=== PATIENT | male | born 1960 | race Caucasian/White ===

== ENCOUNTER 2017-05-04 11:42 | Observation (INO) | payer OTHER ==
[~2017-05-04] VITALS: Ht 172.7 cm; Wt 85.4 kg
[~2017-05-04 11:42] MED LIST: No Home Medications
[2017-05-04] MEDS ORDERED: MECLIZINE HCL 25 MG TAB PO STA (12:17)
[2017-05-04] MEDS ORDERED: SODIUM CHLORIDE 0.9% 1000ML 500 ML IV STA (12:17)
[2017-05-04] MEDS ORDERED: NITROGLYCERIN OINT 2% 1GM PACKET EXT STA (12:17)
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
[2017-05-04] MEDS ORDERED: OPTIRAY 320 IV PRN (12:30)
[2017-05-04 12:53] LABS: HEMATOCRIT 41.3 % (42-52); MEAN CELL VOLUME 91.6 fL (80-100); MEAN CORPUSCULAR HEMOGLOBIN 33.3 pg (25-34); MEAN CORPUSCULAR HGB CONC 36.3 g/dl (32-36); MEAN PLATELET VOLUME 8.7 fL (7.4-10.4); PLATELET COUNT 294 K/uL (130-400); RED BLOOD COUNT 4.51 M/uL (4.7-6.1); WHITE BLOOD COUNT 6.56 K/uL (4.8-10.8)
[2017-05-04 13:00] LABS: INR 1.1 (0.9-1.1); PROTHROMBIN TIME (PATIENT) 11.3 SECONDS (9.0-12.0)
[2017-05-04 13:01] LABS: ALT/SGPT 19 U/L (12-78); BLOOD UREA NITROGEN 18 mg/dl (7-18); BUN/CREATININE RATIO 17.5 (10-20); CALCIUM 9.6 mg/dl (8.5-10.1); CARBON DIOXIDE 20 mmol/L (21-32); CHLORIDE 106 mmol/L (98-107); GLUCOSE 167 mg/dl (70-99); POTASSIUM 3.4 mmol/L (3.5-5.1); SODIUM 137 mmol/L (136-145)
[2017-05-04 13:06] LABS: ALKALINE PHOSPHATASE 80 U/L (45-117); AST/SGOT 21 U/L (15-37)
--- NOTE | 2017-05-04 13:09 | DIAGNOSTIC IMAGING REPORT ---
CHEST ONE VIEW PORTABLE CLINICAL HISTORY: CHEST PAIN COMPARISON STUDY: No previous studies for comparison. FINDINGS: The bones soft tissues and hemidiaphragms are normal. The cardiomediastinal silhouette is normal. The lungs are clear. The pulmonary vasculature is normal. IMPRESSION: Negative chest. The above report was generated using voice recognition software. It may contain grammatical, syntax or spelling errors. Electronically signed by: Iglesia Walker M.D. 05/04/2017 1:07 PM Dictated Date/Time: 05/04/2017 1:06 PM
--- NOTE | 2017-05-04 14:41 | DIAGNOSTIC IMAGING REPORT ---
CHEST COMBO ANGIO DISSECTION CLINICAL HISTORY: 56 years-old Male presenting with chest pain, history of bicuspid valve. TECHNIQUE: Multidetector CT angiography of the chest was performed after the administration of intravenous contrast. 3-D volumetric and/or maximum intensity projection (MIP) images were subsequently reconstructed for review. IV contrast: 120 mL of Optiray 320. A dose lowering technique was used consistent with the principles of ALARA (as low as reasonably achievable). Stenosis measurements were based on NASCET-like criteria. COMPARISON: None. CT DOSE (mGy.cm): The estimated cumulative dose is 1572.55 mGycm. FINDINGS: Rail Track Layer topogram: Unremarkable. Vasculature: Evaluation of the valve annulus is limited given nongated technique. Allowing for this, no evidence of dissection or acute aortic injury. Normal three-vessel arch configuration. Minimal atherosclerosis of the arch. Remaining chest: On soft tissue windows, thyroid and thoracic inlet. No lymphadenopathy. Top normal heart size. No pericardial or pleural effusion. Upper abdomen unremarkable. On lung windows, nodular opacities noted in the right middle and lower lobes. Nodular opacities also noted in the superior segment of the left lower lobe. Dependent opacities likely atelectasis. Airways patent. On bone windows, exaggerated thoracic kyphosis. IMPRESSION: 1. Allowing for nongated technique, no evidence of dissection or acute aortic injury. 2. Nodular opacities in the right middle and lower lobes and superior segment of the left lower lobe concerning for an infectious etiology. Electronically signed by: Kun Julien M.D. 05/04/2017 2:39 PM Dictated Date/Time: 05/04/2017 2:00 PM
[2017-05-04] MEDS ORDERED: LORAZEPAM 2 MG/ML 1 ML VIAL IV STA (14:43)
[2017-05-04] MEDS ORDERED: ONDANSETRON INJ 2 MG/ML 2 ML VIAL IV STA (14:49)
--- NOTE | 2017-05-04 15:32 | DIAGNOSTIC IMAGING REPORT ---
CT OF THE HEAD WITHOUT CONTRAST CLINICAL HISTORY: Vertigo. COMPARISON STUDY: No previous studies for comparison. CT DOSE: 614.27 mGy.cm TECHNIQUE: Helical axial images of the head were obtained without IV contrast. Automated exposure control was utilized for the study. A dose lowering technique was utilized adhering to the principles of ALARA. FINDINGS: No acute intracranial hemorrhage, midline shift or mass effect is present. Vascular contrast is noted from recent contrast-enhanced chest CT. This slightly decreases the sensitivity for detection of acute intracranial hemorrhage but none is identified. Ventricular system is normal. Basilar cisterns are patent. There are no extra-axial collections. Spicer-white differentiation is maintained. There are no findings to suggest acute dural sinus thrombosis or acute territorial infarct. There are no significant calvarial abnormalities. Visualized portions of the sinuses and mastoid air cells are clear. IMPRESSION: No acute intracranial findings. Electronically signed by: Jt Guerra M.D. 05/04/2017 3:31 PM Dictated Date/Time: 05/04/2017 3:28 PM
[2017-05-04] MEDS ORDERED: ACETAMINOPHEN 325 MG TAB PO PRN (16:30)
[2017-05-04] MEDS ORDERED: ONDANSETRON INJ 2 MG/ML 2 ML VIAL IV PRN (16:30)
[2017-05-04] MEDS ORDERED: CLONAZEPAM 0.5 MG TAB PO PRN (16:30)
[2017-05-04] MEDS ORDERED: NITROGLYCERIN 0.4 MG SL PER TAB CHARGE SL PRN (16:30)
[2017-05-04] MEDS ORDERED: POLYETHYLENE (MIRALAX) 17 GM PACK PO PRN (16:30)
[2017-05-04] MEDS ORDERED: MoRPHine SULFATE 2 MG/ML CARP IV PRN (16:30)
[2017-05-04] MEDS ORDERED: MECLIZINE HCL 25 MG TAB PO PRN (16:30)
[2017-05-04] MEDS ORDERED: PHARMACIST DISCHARGE MED REC CONSULT PRN (16:30)
[2017-05-04 16:40] VITALS: O2SAT 98; Ht 172.7 cm; Wt 85.4 kg
[2017-05-04] MEDS ORDERED: IV FLUIDS COMPLETED PRN (16:45)
--- NOTE | 2017-05-04 16:49 | History and Physical ---
History & Physical Date & Time of Service: May 04, 2017 at 16:29 Chief Complaint: Chest Pain Primary Care Physician: Stanislaw Soria D.O. 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 He states that he got acute chest pain acroos his chest that was a 1/10 while driving and felt like a pulled muscle. He denied radiation of pain. This was swiftly followed by drenching sweats, shortness of breath, nausea, vertigo and blurred vision. A stranger called an ambulance and EMS gave him Zofran, ASA and Nitro with resolution of chest pain and improvement in his symptoms on arrival to the ER. Initial VS in the ER were normal, he was not hypoxic and was afebrile. He then became more dizzy to the point where he couldn't move his head or body much at all for fear of severe nausea and extreme dizziness. He has a h/o bicuspid aortic valve and had a CT scan of his chest revealing no evidence of dissection. At this time, his chest pain and shortness of breath have resolved. He admits to a headache from the [place]. About three weeks ago he and his travelled to [place] and went hiking on trails with a tour group in [facility]. He denies any bugbites, working with hides or hunting activities or anything remote. He does admit to having a URI, however, for which he took Nyquil and Dayquil for about 2 weeks. He continues to take cough drops this morning. The cold symptoms have mostly resolved per his report. He denies any sore throat, cough, fevers, chills, diarrhea, blood per rectum, rashes, joint or muscle aches out of the ordinary. 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 He also reports that he frequently cleans out his own ears with cerumenolytics at home, and uses a suction bulb to squirt warm water in his ear to rinse out the wax debris. He last did this two nights ago. Regarding chest pains in the past, he has felt twinges of pain in response to stressful situations which would be sharp, substernal and last no more than a minute on a weekly basis. He learned some coping mechanisms and breathing techniques, however, and since then these have resolved. He is a very healthy , active nonsmoker. His parents both from heart disease in their early 60s. Past Medical/Surgical History Medical Problems: (1) Benign paroxysmal positional vertigo of left ear Status: Chronic (2) Benign paroxysmal positional vertigo of right ear Status: Chronic (3) Bicuspid aortic valve Status: Chronic (4) Prostate cancer Permanent Comment: s/p prostatectomy and XRT Status: Chronic Family History Diabetes mellitus FH: heart disease FATHER (60s ) MOTHER (60s) Hypertension Kidney disease Social History Smoking Status: Never Smoker Smokeless Tobacco Use: No Alcohol Use: none Drug Use: none Marital Status: Housing status: lives with significant other Occupational Status: employed Immunizations History of Influenza Vaccine: Yes Influenza Vaccine Date: Jun 10, 2016 History of Tetanus Vaccine?: Yes Tetanus Immunization Date: Oct 15, 2010 History of Pneumococcal: No History of Hepatitis B Vaccine: No Multi-Drug Resistant Organisms History of MDRO: No Allergies Coded Allergies: No Known Allergies (Verified , 05/04/17) Review of Systems At least ten systems were reviewed and negative except as indicated in HPI. Physical Exam Vital Signs Date Time Temp Pulse Resp B/P (MAP) Pulse Ox O2 Delivery O2 Flow Rate FiO2 05/04/17 15:41 70 05/04/17 14:56 66 17 121/76 99 Room Air 05/04/17 14:05 60 15 111/67 100 Room Air 05/04/17 13:16 54 106/68 98 Room Air 05/04/17 12:13 61 15 122/69 99 Room Air 05/04/17 11:53 99 Room Air 05/04/17 11:50 70 05/04/17 11:45 36.6 70 16 117/75 98 Room Air 05/04/17 11:45 98 Room Air General Appearance: WD/WN, no apparent distress, + pertinent finding (sitting guarded about turning head for fear of being dizzy) Head: normocephalic, atraumatic Eyes: normal inspection, PERRL, EOMI, sclerae normal ENT: normal ENT inspection, hearing grossly normal, TMs normal, pharynx normal (limited view with Mallumpati III and extreme gag reflex), + pertinent finding ( TM could not be visualized on R ear because of cerumen blockage, normal on L) Neck: supple, no adenopathy, no JVD, trachea midline Respiratory/Chest: lungs clear, normal breath sounds, no respiratory distress, no accessory muscle use Cardiovascular: regular rate, rhythm, no edema, no gallop, no JVD, no murmur, normal peripheral pulses Abdomen/GI: normal bowel sounds, non tender, soft, no organomegaly Back: normal inspection Extremities/Musculoskelatal: normal inspection, no calf tenderness, no pedal edema, normal range of motion Neurologic/Psych: procurement assistant II-XII nml as tested, no motor/sensory deficits, alert, normal mood/affect, normal reflexes, oriented x 3, + pertinent finding (left- beating horizontal nystagmus) Skin: normal color, warm/dry, no rash Diagnostics Laboratory Results 05/04/17 11:49 05/04/17 11:49 Test 05/04/17 11:49 05/04/17 15:15 05/04/17 16:17 Red Blood Count 4.51 M/uL (4.7-6.1) Mean Corpuscular Volume 91.6 fL (80-100) Mean Corpuscular Hemoglobin 33.3 pg (25-34) Mean Corpuscular Hemoglobin Concent 36.3 g/dl (32-36) RDW Standard Deviation 43.8 fL (36.4-46.3) RDW Coefficient of Variation 13.1 % (11.5-14.5) Mean Platelet Volume 8.7 fL (7.4-10.4) Prothrombin Time 11.3 SECONDS (9.0-12.0) Prothromb Time International Ratio 1.1 (0.9-1.1) Activated Partial Thromboplast Time 26.8 SECONDS (21.0-31.0) Partial Thromboplastin Ratio 1.0 Anion Gap 11.0 mmol/L (3-11) Est Creatinine Clear Calc Drug Dose 88.2 ml/min Estimated GFR () 95.7 Estimated GFR (Non- 82.6 BUN/Creatinine Ratio 17.5 (10-20) Calcium Level 9.6 mg/dl (8.5-10.1) Total Bilirubin 1.6 mg/dl (0.2-1) Aspartate Amino Transf (AST/SGOT) 21 U/L (15-37) Alanine Aminotransferase (ALT/SGPT) 19 U/L (12-78) Alkaline Phosphatase 80 U/L (45-117) Troponin I < 0.015 ng/ml (0-0.045) Total Protein 7.6 gm/dl (6.4-8.2) Albumin 3.8 gm/dl (3.4-5.0) Globulin 3.8 gm/dl (2.5-4.0) Albumin/Globulin Ratio 1.0 (0.9-2) Bedside Glucose 115 mg/dl (70-99) Results Past 24 Hours Test 05/04/17 11:49 05/04/17 15:15 05/04/17 16:17 Range/Units White Blood Count 6.56 4.8-10.8 K/uL Red Blood Count 4.51 4.7-6.1 M/uL Hemoglobin 15.0 14.0-18.0 g/dL Hematocrit 41.3 42-52 % Mean Corpuscular Volume 91.6 80-100 fL Mean Corpuscular Hemoglobin 33.3 25-34 pg Mean Corpuscular Hemoglobin Concent 36.3 32-36 g/dl RDW Standard Deviation 43.8 36.4-46.3 fL RDW Coefficient of Variation 13.1 11.5-14.5 % Platelet Count 294 130-400 K/uL Mean Platelet Volume 8.7 7.4-10.4 fL Prothrombin Time 11.3 9.0-12.0 SECONDS Prothromb Time International Ratio 1.1 0.9-1.1 Activated Partial Thromboplast Time 26.8 21.0-31.0 SECONDS Partial Thromboplastin Ratio 1.0 Sodium Level 137 136-145 mmol/L Potassium Level 3.4 3.5-5.1 mmol/L Chloride Level 106 98-107 mmol/L Carbon Dioxide Level 20 21-32 mmol/L Anion Gap 11.0 3-11 mmol/L Blood Urea Nitrogen 18 7-18 mg/dl Creatinine 1.00 0.60-1.40 mg/dl Est Creatinine Clear Calc Drug Dose 88.2 ml/min Estimated GFR () 95.7 Estimated GFR (Non- 82.6 BUN/Creatinine Ratio 17.5 10-20 Random Glucose 167 70-99 mg/dl Calcium Level 9.6 8.5-10.1 mg/dl Total Bilirubin 1.6 0.2-1 mg/dl Aspartate Amino Transf (AST/SGOT) 21 15-37 U/L Alanine Aminotransferase (ALT/SGPT) 19 12-78 U/L Alkaline Phosphatase 80 45-117 U/L Troponin I < 0.015 0-0.045 ng/ml Total Protein 7.6 6.4-8.2 gm/dl Albumin 3.8 3.4-5.0 gm/dl Globulin 3.8 2.5-4.0 gm/dl Albumin/Globulin Ratio 1.0 0.9-2 Bedside Glucose 115 70-99 mg/dl Diagnostic Radiology CT OF THE HEAD WITHOUT CONTRAST CLINICAL HISTORY: Vertigo. COMPARISON STUDY: No previous studies for comparison. CT DOSE: 614.27 mGy.cm TECHNIQUE: Helical axial images of the head were obtained without IV contrast. Automated exposure control was utilized for the study. A dose lowering technique was utilized adhering to the principles of ALARA. FINDINGS: No acute intracranial hemorrhage, midline shift or mass effect is present. Vascular contrast is noted from recent contrast-enhanced chest CT. This slightly decreases the sensitivity for detection of acute intracranial hemorrhage but none is identified. Ventricular system is normal. Basilar cisterns are patent. There are no extra-axial collections. Spicer-white differentiation is maintained. There are no findings to suggest acute dural sinus thrombosis or acute territorial infarct. There are no significant calvarial abnormalities. Visualized portions of the sinuses and mastoid air cells are clear. IMPRESSION: No acute intracranial findings. CHEST COMBO ANGIO DISSECTION CLINICAL HISTORY: 56 years-old Male presenting with chest pain, history of bicuspid valve. TECHNIQUE: Multidetector CT angiography of the chest was performed after the administration of intravenous contrast. 3-D volumetric and/or maximum intensity projection (MIP) images were subsequently reconstructed for review. IV contrast: 120 mL of Optiray 320. A dose lowering technique was used consistent with the principles of ALARA (as low as reasonably achievable). Stenosis measurements were based on NASCET-like criteria. COMPARISON: None. CT DOSE (mGy.cm): The estimated cumulative dose is 1572.55 mGycm. FINDINGS: High Density Finishing Operator topogram: Unremarkable. Vasculature: Evaluation of the valve annulus is limited given nongated technique. Allowing for this, no evidence of dissection or acute aortic injury. Normal three-vessel arch configuration. Minimal atherosclerosis of the arch. Remaining chest: On soft tissue windows, thyroid and thoracic inlet. No lymphadenopathy. Top normal heart size. No pericardial or pleural effusion. Upper abdomen unremarkable. On lung windows, nodular opacities noted in the right middle and lower lobes. Nodular opacities also noted in the superior segment of the left lower lobe. Dependent opacities likely atelectasis. Airways patent. On bone windows, exaggerated thoracic kyphosis. IMPRESSION: 1. Allowing for nongated technique, no evidence of dissection or acute aortic injury. 2. Nodular opacities in the right middle and lower lobes and superior segment of the left lower lobe concerning for an infectious etiology. CHEST ONE VIEW PORTABLE CLINICAL HISTORY: CHEST PAIN COMPARISON STUDY: No previous studies for comparison. FINDINGS: The bones soft tissues and hemidiaphragms are normal. The cardiomediastinal silhouette is normal. The lungs are clear. The pulmonary vasculature is normal. IMPRESSION: Negative chest. Normal EKG Impression Assessment and Plan 56 yo M who presents with sudden onset chest pain and vertigo after a recent URI 1. Vertigo-no neurologic deficits, however, balance and gait cannot be examined with severe nausea and dizziness. Recent viral URI makes vestibular neuritis top on the list of possible causes of vertigo. There is presence of R cerumen in the external canal, and he has techniques of washing out his ears with warm water which may be somewhat contributing. He has a horizontal left- beating nystagmus present and for these reasons, I think his vertigo is peripheral. However, will obtain an MRI/MRA to rule out stroke in the meantime. Will hold off on initiating any high dose prednisone until acute OK is ruled out with recent chest pain and concerning features of ACS in setting of significant family history. ASA was given, Lipitor 80mg started. Neuro consulted. If no OK would consider initiating prednisone at 60mg x 5 days, then work down, 40, 30, 20, 10 and 5mg on successive days for total 10 day taper for treatment of symptoms. Also, antihistamine, benzos and antiemetics are ordered PRN and will keep him on IVF x 2 more bags to ensure he is hydrated well. 2. Chest pain-severe, relieved with nitro. May have been related to stress from vertigo episode, however, patient has a significant family history and some history of repetitive chest pain episodes in the past. May warrant a stress test for risk stratification. OF note, he recently hiked [employer] in [place] without any issues. EKG unremarkable, CXR and CT appear fine. Initial set of cardiac enzymes are normal. 3. h/o prostate cancer-PSA undetectable in Sep 2016 4. Hypokalemia-mild but would prefer slightly higher while considering ACS. 40mg PO ordered. DVT proph-Lovenox. FULL CODE Dispo-to telemetry DO [facility] Level of Care Telemetry Resuscitation Status FULL RESUSCITATION VTE Prophylaxis VTE Risk Assessment Done? Y/N: Yes Risk Level: Moderate Given or contraindicated: Enoxaparin (Lovenox)SQ
--- NOTE | 2017-05-04 17:24 | DIAGNOSTIC IMAGING REPORT ---
ORBIT RADIOGRAPHS 3 VIEWS HISTORY: pre-MRI screening. COMPARISON: None. FINDINGS: There are no radiopaque foreign bodies identified within the orbits. IMPRESSION: No radiopaque foreign bodies identified within the orbits. Electronically signed by: Jt Guerra M.D. 05/04/2017 5:23 PM Dictated Date/Time: 05/04/2017 5:23 PM
[2017-05-04] MEDS: SODIUM CHLORIDE 0.9% 1000ML 1,000 ML IV SCH (18:18)
[2017-05-04] MEDS ORDERED: POTASSIUM CHLORIDE 20 MEQ TABCR PO SCH (18:30)
[2017-05-04 18:43] LABS: CKMB/CK RATIO 2.6 (0-3.0)
[2017-05-04] MEDS ORDERED: INFLUENZA VIRUS QUAD VACCINE 0.5 ML SYR IM. ONE (19:00)
[2017-05-04] MEDS ORDERED: INFLUENZA ADMINISTRATION CHARGE ONE (19:00)
--- NOTE | 2017-05-04 22:27 | DIAGNOSTIC IMAGING REPORT ---
MR ANGIOGRAPHY OF THE [place] NO CONTRAST CLINICAL HISTORY: Sudden onset dizziness and vertigo. Possible stroke COMPARISON STUDY: None. A 3-D [id number] MR angiographic sequence of the [place] was performed. Both the source and projection images were reviewed. There is no evidence of major intracranial branch occlusion. There is no evidence of intracranial stenosis. There are no lesions suspicious for aneurysm. IMPRESSION: Unremarkable MR angiography of the [place]. Electronically signed by: Chuck Morton M.D. 05/04/2017 10:26 PM Dictated Date/Time: 05/04/2017 10:24 PM
--- NOTE | 2017-05-04 22:28 | DIAGNOSTIC IMAGING REPORT ---
NECK MRA HISTORY: Sudden onset dizziness and vertigo. Possible stroke TECHNIQUE: [id number] and gadolinium-enhanced MRA of the neck was performed both before and after the intravenous administration of contrast. All measurements were calculated based on NASCET criteria. The patient was administered 9 cc of intravenous Gadavist. COMPARISON STUDY: None. FINDINGS: The aortic arch and proximal great vessels are widely patent. There is no significant stenosis, occlusion, or dissection identified within the bilateral common carotid, internal carotid, or vertebral arteries. IMPRESSION: No significant stenosis, occlusion, or dissection identified within the carotid or vertebral arteries. Electronically signed by: Chuck Morton M.D. 05/04/2017 10:27 PM Dictated Date/Time: 05/04/2017 10:26 PM
--- NOTE | 2017-05-04 22:54 | DIAGNOSTIC IMAGING REPORT ---
MRI OF THE BRAIN WITHOUT AND WITH IV CONTRAST CLINICAL HISTORY: Sudden onset dizziness and vertigo. Possible stroke COMPARISON STUDY: Noncontrast head CT dated 05/04/2017 TECHNIQUE: MRI of the brain was performed from the vertex to the skull base utilizing various T1 and T2 weighted sequences. Following the IV administration of 9 mL of Gadavist contrast, additional enhanced images were obtained. FINDINGS: Sagittal T1, axial diffusion, proton density and T2 weighted axial, coronal FLAIR, and pre and post axial T1-weighted images were acquired. These were supplemented with post gadolinium coronal T1 weighted images. No intra or extra-axial mass lesions are visualized. Axial diffusion-weighted images reveal no evidence of acute or subacute infarction. There is no evidence of ventricular dilatation. Proton density T2-weighted and FLAIR images reveal no significant a single subtle focus of increased FLAIR and T2 signal within the right posterior medial brodie. There is no pathologic enhancement this level. There are no abnormal flow voids. There is no evidence of pathologic enhancement. IMPRESSION: 1. No evidence of acute or subacute infarction 2. No evidence of intracranial mass 3. Single subtle focus of increased FLAIR and T2 signal within the right posterior medial brodie, a finding of doubtful acute clinical significance Electronically signed by: Chuck Morton M.D. 05/04/2017 10:52 PM Dictated Date/Time: 05/04/2017 10:47 PM
[2017-05-04] MEDS: ATORVASTATIN 40 MG TAB PO SCH (22:55)
[2017-05-04] MEDS ORDERED: GADAVIST IV PRN (23:15)
[2017-05-04 23:49] VITALS: BP 124/73; PULSE 64; TEMP 36.4; O2SAT 100
[2017-05-05] VITALS: O2SAT 98
[2017-05-05] MEDS: SODIUM CHLORIDE 0.9% 1000ML 1,000 ML IV SCH (00:24)
[2017-05-05 00:37] LABS: URINE APPEARANCE CLEAR (CLEAR); URINE BILIRUBIN NEG (NEG); URINE COLOR YELLOW; URINE EPITHELIAL CELL AUTO 0-5 /lpf (0-5); URINE NITRITE NEG (NEG); URINE PH 5.5 (4.5-7.5); URINE SPECIFIC GRAVITY 1.024 (1.000-1.030); UROBILINOGEN NEG (NEG)
[2017-05-05 01:01] LABS: MANUAL MICROSCOPIC REQUIRED? NO; REVIEW REQ? NO
[2017-05-05 02:41] LABS: BLOOD UREA NITROGEN 15 mg/dl (7-18); BUN/CREATININE RATIO 16.5 (10-20); CALCIUM 9.1 mg/dl (8.5-10.1); CARBON DIOXIDE 25 mmol/L (21-32); CHLORIDE 109 mmol/L (98-107); CHOLESTEROL 160 mg/dl (0-200); CHOLESTEROL/HDL RATIO 2.6; CKMB/CK RATIO 2.6 (0-3.0); CREATININE 0.92 mg/dl (0.60-1.40); GLUCOSE 91 mg/dl (70-99); HDL CHOLESTEROL 61 mg/dl; LDL CHOLESTEROL CALCULATED 85 mg/dl; POTASSIUM 4.2 mmol/L (3.5-5.1); SODIUM 141 mmol/L (136-145); TRIGLYCERIDES 71 mg/dl (0-150); VERY LOW DENSITY LIPOPROT CALC 14 mg/dl
[2017-05-05 04:00] VITALS: BP 132/78; PULSE 67; TEMP 36.6; O2SAT 95; O2SAT 98
[2017-05-05 04:37] LABS: ESTIMATED AVERAGE GLUCOSE 111 mg/dl; HA1C FLAG Normal (Normal)
[2017-05-05 05:44] LABS: BASO % 0.2 %; BASO ABS # 0.01 K/uL (0-0.2); COMPLETE YES; EOS % 1.4 %; HEMATOCRIT 41.6 % (42-52); IG% 0.2 %; LYMPH % 27.9 %; LYMPH ABS # 1.81 K/uL (1.2-3.4); MEAN CELL VOLUME 95.2 fL (80-100); MEAN CORPUSCULAR HEMOGLOBIN 31.8 pg (25-34); MEAN CORPUSCULAR HGB CONC 33.4 g/dl (32-36); MEAN PLATELET VOLUME 8.6 fL (7.4-10.4); MONO % 10.8 %; NEUT % 59.5 %; PLATELET COUNT 241 K/uL (130-400); RED BLOOD COUNT 4.37 M/uL (4.7-6.1); WHITE BLOOD COUNT 6.49 K/uL (4.8-10.8)
[2017-05-05 07:15] VITALS: BP 126/80; PULSE 64; TEMP 36.9; O2SAT 100
[2017-05-05] MEDS: ENOXAPARIN 40 MG/0.4 ML SYR SC SCH ×2 (07:42→07:49)
[2017-05-05] MEDS: ATORVASTATIN 40 MG TAB PO SCH (07:42)
[2017-05-05] MEDS ORDERED: ASPIRIN 81 MG ECTAB PO SCH (09:00)
[2017-05-05] MEDS ORDERED: CARBAMIDE PEROXIDE 6.5% 15 ML BTL OT SCH (09:00)
[2017-05-05 11:05] VITALS: BP 130/84; PULSE 65; TEMP 36.8; O2SAT 98
--- NOTE | 2017-05-05 11:11 | Cardiology Consultation ---
Cardiology Consultation Date of Consultation: May 05, 2017 History of Present Illness Rainer Hernandes is a 56 year old male seen in cardiology consultation for management regarding episode of chest discomfort, diaphoresis, and dizziness. The patient has a history of congenital bicuspid aortic valve. He does not follow routinely with cardiology. He states that he had seen Dr. Good many years ago but has not followed routinely. 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 At that time he was found to have bicuspid aortic valve on the resting study with moderate aortic valve regurgitation and mild aortic root enlargement. The patient exercised to an above average workload completing 9 minutes and 31 seconds on a Vickey protocol with no EKG or echocardiographic evidence of inducible ischemia at that time. Ejection fraction left ventricular chamber size was reportedly normal. The patient did have a borderline hypertensive blood pressure response to exercise with peak blood pressure reported to be 217/ 88. The patient describes himself as being physically active. 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 He describes his job as being very stressful and he puts in long 13 hour days at times. He notes that he recently returned from a trip to [place] approximately 3 weeks ago and he felt that he had been coming down with a cold with some degree of cough and chest congestion and acute plan to see the doctor if his cough did not get any better. He states that while in [place] he did agree to hiking with no symptoms to suggest angina. He states that a few years ago he hiked in the [place]. Yesterday while driving his concrete truck to a delivery he felt sudden onset of a bandlike chest discomfort over his chest bilaterally with associated heavy perspiration and then dizziness. He has had vertigo in the past, but he states this felt different. He was able to pull his truck over. He got out of the truck, had continued dizziness, nauseousness, heavy perspiration and he vomited twice. Emergency medical services was summoned and he notes that after he got his overalls off and got some fresh air his symptoms started to improve. He received aspirin and sublingual nitroglycerin, but he is not certain either of these medications helped. In the emergency room he had a transient recurrence of his dizziness, but no chest discomfort. CT and MRI of the brain were negative. A CT of the chest was performed revealing no thoracic aortic dissection. There were nodular opacities in the right middle and right lower lobes and superior segment of left lower lobe concerning for possible infection. When I interviewed the patient in room 280-2 he was feeling well. He felt a little bit of lightheadedness this morning but no chest discomfort. EKG performed on admission and again this morning revealed sinus rhythm with no significant ST changes to suggest ischemia. Telemetry reveals stable sinus rhythm. Cardiac enzymes have been negative 3. His LDL cholesterol is 85 mg/ dL. History Past Medical History: 1. Bicuspid aortic valve, with moderate aortic regurgitation noted on echo cardiac 2013 2. History of prostate carcinoma, status post robotic-assisted prostatectomy in 2014 3. History of vertigo Past Surgical History: Prostatectomy 2014 as noted above Social History: He is a nonsmoker. He admits to very rare alcohol use. He works as a commercial construction superintendent Family History: Father of suspected heart disease at the age of 64. His mother at age 63. The patient describes that she possibly had an aorta rupture. He does not recall if this was a thoracic aorta problem or an abdominal aorta problem. Review Of Systems See above for pertinent positives & negatives. A total of 10 systems reviewed and were otherwise negative. Allergies Coded Allergies: No Known Allergies (Verified , 05/04/17) Medications Reported Home Medications Medications Dose Route/Sig Max Daily Dose Days Date Category Physical Exam Vital Signs (Last 8hrs): Last 8 Hrs Date Time Temp Pulse Resp B/P (MAP) Pulse Ox O2 Delivery O2 Flow Rate FiO2 05/05/17 08:00 Room Air 05/05/17 07:15 36.9 64 20 126/80 (95) 100 05/05/17 04:00 36.6 67 18 132/78 (96) 95 Room Air 05/05/17 04:00 98 Room Air General Appearance: Alert and Oriented x3. NAD. Head: Normocephalic Atraumatic. Eyes: PERRLA, EOMI, conjunctiva and sclera clear Neck: Supple. No carotid bruits noted. No JVD. No HJD. Respiratory: Breath sounds clear to auscultation bilaterally. No w/r/r. Cardiovascular: Reg rate and rhythm. S1 and S2 noted. No murmurs, rubs, gallops. PMI non displace. Abdomen: Normal bowel sounds, soft nontender. no abdominal bruits. Extremities: No edema, no clubbing or cyanosis. distal pulses 2/4 bilaterally. Neuro: No focal deficits. Psychiatric: Normal affect. Data Last Resulted 05/05/17 05:12 Red Blood Count 4.37, Mean Corpuscular Volume 95.2, Mean Corpuscular Hemoglobin 31.8, Mean Corpuscular Hemoglobin Concent 33.4, Mean Platelet Volume 8.6, Neutrophils (%) (Auto) 59.5, Lymphocytes (%) (Auto) 27.9, Monocytes (%) (Auto) 10.8, Eosinophils (%) (Auto) 1.4, Basophils (%) (Auto) 0.2, Neutrophils # (Auto ) 3.87, Lymphocytes # (Auto) 1.81, Monocytes # (Auto) 0.70, Eosinophils # (Auto ) 0.09, Basophils # (Auto) 0.01 Last Resulted 05/05/17 01:51 Past 24 Hours Test 05/04/17 11:49 05/04/17 18:08 05/05/17 01:51 Range/Units Prothromb Time International Ratio 1.1 0.9-1.1 Prothrombin Time 11.3 9.0-12.0 SECONDS Troponin I < 0.015 < 0.015 < 0.015 0-0.045 ng/ml Creatine Kinase MB 4.3 H 3.4 0.5-3.6 ng/ml Creatine Kinase MB Ratio 2.6 2.6 0-3.0 Total Creatine Kinase 167 132 39-308 U/L EKG and telemetry as outlined above Assessment & Plan Impression: 56-year-old male 1. Chest discomfort, concerning for angina, and dizziness, but this was not characteristic of his prior vertigo 2. History of bicuspid aortic valve, past aortic valve regurgitation felt to be moderate in severity on echocardiogram performed in 2013 3. Family history of possible aortic dissection, given the patient's personal history of a bicuspid aortic valve and the noted association between bicuspid aortic valve and thoracic aorta pathology, this may have been what his mother had. He had a negative CT study for thoracic aortic dissection. Plan: Patient is going to ambulate in the hallway and as long as his dizziness is resolved, will plan for a resting echo combined with an exercise stress echocardiogram. Resting echocardiogram will be performed ahead of time to reassess his aortic valve, ventricular function, and for aortic stenosis, AI, and proximal ascending aorta diameter. Further recommendations be forthcoming after the test is completed. Rainer Segura DO, FACC, FACOI Associate [employer]ometer Tuner [facility], [facility]
--- NOTE | 2017-05-05 14:15 | Neurology Consultation ---
Neurology Consultation Date of Consultation: May 05, 2017. Attending Physician: Dejuan Almodovar M.D. 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 He was able to get his truck to the [facility] an called 911. He was given nitro which relieved his chest pain and improvement in his symptoms on arrival to the ER. He then became more dizzy to the point where he couldn't move his head or body much at all for fear of severe nausea and extreme dizziness. He has a h/o bicuspid aortic valve and had a CT scan of his chest revealing no evidence of dissection. He had a headache after being given nitro but that has resolved. About three weeks ago he and his travelled to [place] and went hiking on trails with a tour group in [facility]. He denies any bug bites, working with hides or hunting activities or anything remote. He was on the plane on the return for more than 12 hours. He does admit to having a URI , which he took Nyquil and Dayquil for about 2 weeks. Prostrate cancer with radiation many years ago. He also states he had vertigo years ago which he states this episode is nothing like the feeling of vertigo. he has had some right sided chest discomfort in the past but he feels this is mostly stress related. he states he is an avid hiker and stays very active. he had a stress test several years ago and states it was normal. His parents both from heart disease in their early 60s.denies current CP, SOB, abdominal pain, weakness, numbness tingling (one sided) slurred speech, word finding issues, facial droop, N, V. Past Medical/Surgical History Medical Problems: (1) Precordial chest pain Status: Acute (2) Vertigo Status: Acute (3) Vomiting Status: Acute Social History Smoking Status: Never smoker Smokeless Tobacco Use: No Alcohol Use: none Drug Use: none Marital Status: Housing Status: lives with family Occupation Status: employed Allergies Coded Allergies: No Known Allergies (Verified , 05/04/17) Current Inpatient Medications Current Inpatient Medications Medications (Trade) Dose Ordered Sig/Jerrod Route Start Time Stop Time Status Last Admin Dose Admin Ioversol (Optiray 320) 125 ml UD PRN IV 05/04/17 12:30 05/08/17 12:29 Aspirin (Ecotrin Tab) 81 mg QAM PO 05/05/17 09:00 06/04/17 08:59 05/05/17 07:42 81 MG Miscellaneous Information (Pharmacist Discharge Med Rec Consult) 1 ea UD PRN N/A 05/04/17 16:30 06/03/17 16:29 Enoxaparin Sodium (Lovenox Inj) 40 mg DAILY SC 05/05/17 09:00 06/04/17 08:59 Acetaminophen (Tylenol Tab) 650 mg Q4H PRN PO 05/04/17 16:30 06/03/17 16:29 05/04/17 18:18 650 MG Ondansetron HCl (Zofran Inj) 4 mg Q6H PRN IV 05/04/17 16:30 06/03/17 16:29 Nitroglycerin (Nitrostat Tab) 0.4 mg UD PRN SL 05/04/17 16:30 06/03/17 16:29 Morphine Sulfate (MoRPHine SULFATE INJ) 2 mg Q30M PRN IV 05/04/17 16:30 05/18/17 16:29 Polyethylene (Miralax Powder Packet) 17 gm DAILY PRN PO 05/04/17 16:30 06/03/17 16:29 Atorvastatin Calcium (Lipitor Tab) 80 mg DAILY PO 05/04/17 17:30 06/03/17 17:29 05/05/17 07:42 80 MG Meclizine HCl (Antivert Tab) 25 mg Q6H PRN PO 05/04/17 16:30 06/03/17 16:29 Clonazepam (Klonopin Tab) 0.5 mg TID PRN PO 05/04/17 16:30 06/03/17 16:29 Miscellaneous (Iv Fluids Completed) 1 ea PRN PRN N/A 05/04/17 16:45 05/04/18 16:44 Gadobutrol (Gadavist) 9 mmol UD PRN IV 05/04/17 23:15 05/08/17 23:14 Carbamide Peroxide (Earwax Removal Soln) 10 drops BID OT 05/05/17 09:00 05/09/17 08:59 05/05/17 07:42 10 DROPS Physical Exam Vital Signs (Past 24 Hrs): Date Time Temp Pulse Resp B/P (MAP) Pulse Ox O2 Delivery O2 Flow Rate FiO2 05/05/17 12:00 Room Air 05/05/17 11:05 36.8 65 18 130/84 (99) 98 05/05/17 08:00 Room Air 05/05/17 07:15 36.9 64 20 126/80 (95) 100 05/05/17 04:00 36.6 67 18 132/78 (96) 95 Room Air 05/05/17 04:00 98 Room Air 05/05/17 00:00 98 Room Air 05/04/17 23:49 36.4 64 18 124/73 (90) 100 Room Air 05/04/17 20:00 Room Air 05/04/17 17:30 65 16 110/71 98 05/04/17 16:44 65 16 110/71 98 Room Air 05/04/17 16:40 98 Room Air 05/04/17 15:41 70 05/04/17 14:56 66 17 121/76 99 Room Air 05/04/17 14:05 60 15 111/67 100 Room Air Physical Exam: Constitutional: appearance nourished, healthy and normal Ears, Nose, Mouth and Throat: mucous membranes moist, no injection and skin normal, eyes normal Cardiovascular: normal S-1 and S-2 and regular rate and rhythm Respiratory: clear to auscultation (CTA) and no rales, rhonchi or wheeze Musculoskeletal: no peripheral edema and good distal pulses Skin: no stigmata of neurocutaneous disease noted and normal and intact Eyes: extraocular muscles intact (EOMI) and pupils equal, round and reactive to light (PERRL) NEUROLOGIC EXAMINATION: Mental status: Alert and interactive Oriented to full date and location Oriented to person Speech fluent with no evidence of aphasia Cranial Nerves smile eye brow raise symmetric, tongue midline Reflexes: Deep tendon reflexes were symmetrical and graded 2/5. Plantar responses were flexor. Sensory: light touch Coordination: finger to nose without bipass or tremor Gait/Stance: Posture normal. Gait normal: with steady with steps, base, turning, tandem gait. Motor: Negative for pronator drift of out stretched arms with eyes closed. 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, hip flex plantar flex ext bilaterally 5/5 Laboratory Results Past 24 Hours: 05/05/17 05:12 Red Blood Count 4.37, Mean Corpuscular Volume 95.2, Mean Corpuscular Hemoglobin 31.8, Mean Corpuscular Hemoglobin Concent 33.4, Mean Platelet Volume 8.6, Neutrophils (%) (Auto) 59.5, Lymphocytes (%) (Auto) 27.9, Monocytes (%) (Auto) 10.8, Eosinophils (%) (Auto) 1.4, Basophils (%) (Auto) 0.2, Neutrophils # (Auto ) 3.87, Lymphocytes # (Auto) 1.81, Monocytes # (Auto) 0.70, Eosinophils # (Auto ) 0.09, Basophils # (Auto) 0.01 05/05/17 01:51 Test 05/04/17 15:15 05/04/17 18:08 05/05/17 00:27 05/05/17 01:51 Bedside Glucose 115 mg/dl (70-99) Estimated Average Glucose 111 mg/dl Hemoglobin A1c 5.5 % (4.5-5.6) Hepatitis C Antibody Screen NEG (NEG) Urine Color YELLOW Urine Appearance CLEAR (CLEAR) Urine pH 5.5 (4.5-7.5) Urine Specific [place] 1.024 (1.000-1.030) Urine Protein NEG (NEG) Urine Glucose (UA) NEG (NEG) Urine Ketones NEG (NEG) Urine Occult Blood NEG (NEG) Urine Nitrite NEG (NEG) Urine Bilirubin NEG (NEG) Urine Urobilinogen NEG (NEG) Urine Leukocyte Esterase NEG (NEG) Urine WBC (Auto) 1-5 /hpf (0-5) Urine RBC (Auto) 0-4 /hpf (0-4) Urine Hyaline Casts (Auto) 0 /lpf (0-5) Urine Epithelial Cells (Auto) 0-5 /lpf (0-5) Urine Bacteria (Auto) NEG (NEG) Anion Gap 7.0 mmol/L (3-11) Est Creatinine Clear Calc Drug Dose 95.9 ml/min Estimated GFR () 105.9 Estimated GFR (Non- 91.4 BUN/Creatinine Ratio 16.5 (10-20) Calcium Level 9.1 mg/dl (8.5-10.1) Total Creatine Kinase 132 U/L (39-308) Creatine Kinase MB 3.4 ng/ml (0.5-3.6) Creatine Kinase MB Ratio 2.6 (0-3.0) Troponin I < 0.015 ng/ml (0-0.045) Triglycerides Level 71 mg/dl (0-150) Cholesterol Level 160 mg/dl (0-200) HDL Cholesterol 61 mg/dl LDL Cholesterol, Calculated 85 mg/dl VLDL Cholesterol, Calculated 14 mg/dl Cholesterol/HDL Ratio 2.6 Test 05/05/17 05:12 White Blood Count 6.49 K/uL (4.8-10.8) Red Blood Count 4.37 M/uL (4.7-6.1) Hemoglobin 13.9 g/dL (14.0-18.0) Hematocrit 41.6 % (42-52) Mean Corpuscular Volume 95.2 fL (80-100) Mean Corpuscular Hemoglobin 31.8 pg (25-34) Mean Corpuscular Hemoglobin Concent 33.4 g/dl (32-36) Platelet Count 241 K/uL (130-400) Mean Platelet Volume 8.6 fL (7.4-10.4) Neutrophils (%) (Auto) 59.5 % Lymphocytes (%) (Auto) 27.9 % Monocytes (%) (Auto) 10.8 % Eosinophils (%) (Auto) 1.4 % Basophils (%) (Auto) 0.2 % Neutrophils # (Auto) 3.87 K/uL (1.4-6.5) Lymphocytes # (Auto) 1.81 K/uL (1.2-3.4) Monocytes # (Auto) 0.70 K/uL (0.11-0.59) Eosinophils # (Auto) 0.09 K/uL (0-0.5) Basophils # (Auto) 0.01 K/uL (0-0.2) RDW Standard Deviation 46.6 fL (36.4-46.3) RDW Coefficient of Variation 13.5 % (11.5-14.5) Immature Granulocyte % (Auto) 0.2 % Immature Granulocyte # (Auto) 0.01 K/uL (0.00-0.02) Imaging CTA chest- . Allowing for nongated technique, no evidence of dissection or acute aortic injury. Nodular opacities in the right middle and lower lobes and superior segment of the left lower lobe concerning for an infectious etiology. MRA neck- No significant stenosis, occlusion, or dissection identified within the carotid or vertebral arteries. MRA head- Unremarkable MR angiography of the [place] of [place]. MRI brain with and without No evidence of acute or subacute infarction No evidence of intracranial mass Single subtle focus of increased FLAIR and T2 signal within the right posterior medial brodie, a finding of doubtful acute clinical significance Impression 56 year old gentle chest pain, light headed perfuse sweating-12 hour airplane flight 3 weeks ago Plan 1. MRI brain and MRA head and neck no acute stroke or vascular abnormalities 2. CT chest with some possible lung findings 3. cardio pulmonary evaluation and stress test in process 4. patient has had vertigo in the past and he state this is not the same 5. currently light headed symptoms have passed and no slurred speech or one sided weakness during the event 6. further recommendations to follow I have seen and discussed above patient with Dr Chino Gutierrez, neurology Above reviewed patient seen and interviewed and examined imaging studies reviewed episode in our opinion was not vertigo or anydefinable pbx technician event and is likely to have been of cardiac origin we will sign off at this point unless a clear cut neurlogic disorder develops discussed with Mily Salcido and agree with the above plan Chino Gutierrez MD
--- NOTE | 2017-05-05 16:10 | Cardiology Progress Note ---
Cardiology Progress Note Date of Service May 05, 2017. Cardiology Progress Note Exercise stress echocardiogram was performed: STRESS STUDY: Normal exercise stress echocardiogram. No echocardiographic or EKG evidence of myocardial ischemia having achieved heart rate adequate for diagnostic purposes. No symptoms suggestive of angina were induced having performed an above average exercise level. The heart rate and blood pressure responses to exercise were normal. RESTING STUDY: There is mild concentric left ventricular hypertrophy. The LV Ejection Fraction = 60-65%. The aortic valve is bicuspid with fusion of the right and left coronary cusps and mild aortic valve sclerosis. There is no significant aortic valve stenosis. Moderate aortic regurgitation is present. Mild aortic root dilatation is present. Final impression: There is no evidence of resting or inducible ischemia. Compared to the report of the outpatient stress echocardiogram performed at [facility] in 2013, the degree of AR is stable. Pt stable for discharge without need for further cardiac testing at this time. Recommend pt establishes with me as outpatient with routine follow up visit at a 6 month interval and yearly after that if stable. 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 Isidro Segura, DO
--- NOTE | 2017-05-05 16:11 | EXERCISE STRESS ECHO ---
*NOTICE TO RECEIVING REPUBLICAN AGENCY This information is strictly Confidential and protected under [place] law. [place] law prohibits you from making any further disclosure of this information unless further disclosure is expressly permitted by the written consent of the person to whom it pertains or is authorized by law. A general authorization for the release of medical or other information is not sufficient for this purpose. Hospital accepts no responsibility if the information is made available to any other person, INCLUDING THE PATIENT. Interpretation Summary * Name: MARIA ISABEL PERKINS Study Date: 05/05/2017 12:59 PM BP: 120/77 mmHg * Patient Location: [facility]\S\N280\S\2 HR: 70 * : 1960 (M/d/yyyy) Gender: Male Height: 68 in * Age: 56 yrs Ethnicity: [place] Weight: 188 lb * Ordering Physician: Maria Isabel Segura * Referring Physician: Self, Referred * Performed By: Caridad Anthony [facility] * * Reason For Study: CHEST PAIN * BSA: 2.0 m2 * The study was technically adequate. * -- Conclusions -- * STRESS STUDY: * Normal exercise stress echocardiogram. * No echocardiographic or EKG evidence of myocardial ischemia having achieved heart rate adequate for diagnostic purposes. * No symptoms suggeistive of angina were induced having performed an above average exercise level. * The heart rate and blood pressure responses to exercise were normal. * RESTING STUDY: * There is mild concentric left ventricular hypertrophy. * The LV Ejection Fraction = 60-65%. * The aortic valve is bicuspid with fusion of the right and left coronary cusps and mild aortic valve sclerosis. * There is no significant aortic valve stenosis. * Moderate aortic regurgitation is present. * Mild aortic root dilatation is present. Procedure Details * ECHOEX, CPT #[id number] * ECHO COLOR FLOW, CPT #[id number] * ECHO DOPPLER, CPT #[id number] Left Ventricle * The left ventricle is normal in size. * There is mild concentric left ventricular hypertrophy. * Left ventricular systolic function is normal. * Ejection Fraction = 60-65%. * Resting wall motion: Normal. Stress wall motion: Appropriate increase in Left ventricular systolic function and decrease in cavity size. No stress induced segmental wall motion abnormalities. Right Ventricle * The right ventricle is normal in size and function. Atria * The left atrial size is normal. * Right atrial size is normal. * No ASD detected; PFO is not assessed. Mitral Valve * The mitral valve is normal. * There is no mitral valve stenosis. * There is mild mitral regurgitation. Tricuspid Valve * The tricuspid valve is normal. * There is no tricuspid stenosis. * Doppler findings do not suggest pulmonary hypertension. * Significant tricuspid regurgitation is absent. Aortic Valve * The aortic valve is bicuspid. * There is fusion of the right and left coronary cusps. * No hemodynamically significant valvular aortic stenosis. * Moderate aortic regurgitation. Pulmonic Valve * The pulmonic valve is not well visualized. Great Vessels * Mild aortic root dilatation. Pericardium * There is no pericardial effusion. Stress Parameters * The baseline EKG reveals sinus rhythm with normal ST segement. * The EKG response was negative for ischemia. No arrhythmias were observed with exercise. * The stress portion of this study was personally supervised by the undersigned interpreting physician. * Rest heart rate was '70' BPM. * Rest blood pressure was '120/77' * Maximum heart rate achieved was 153 bpm. * Maximum heart rate was 94 % of maximum age-predicted heart rate. * Maximum blood pressure was '186/80' * Total exercise time was '09:01' * Maximum exercise MET level achieved was '10.10' METS * Maximum treadmill speed was '3.40' miles per hour. * Maximum treadmill elevation was '14.00'% grade. Left Ventricular Diastolic Function * Grade I diastolic dysfunction, (abnormal relaxation pattern). MMode 2D Measurements and Calculations IVSd 1.4 cm IVSs 1.7 cm LVIDd 4.8 cm LVIDs 3.7 cm LVPWd 1.4 cm LVPWs 1.8 cm IVS/LVPW 1.0 FS 24.0 % EDV(Teich) 109.6 ml ESV(Teich) 57.4 ml EF(Teich) 47.7 % EDV(cubed) 113.4 ml ESV(cubed) 49.8 ml EF(cubed) 56.1 % % IVS thick 18.4 % % LVPW thick 26.6 % LV mass(C)d 283.0 grams LV mass(C)dI 142.2 grams/m\S\2 LV mass(C)s 264.0 grams LV mass(C)sI 132.6 grams/m\S\2 SV(Teich) 52.3 ml SI(Teich) 26.3 ml/m\S\2 SV(cubed) 63.6 ml SI(cubed) 31.9 ml/m\S\2 Ao root diam 3.7 cm Ao root area 10.9 cm\S\2 LVOT diam 2.6 cm LVOT area 5.3 cm\S\2 LVAd ap4 45.3 cm\S\2 LVLd ap4 9.9 cm EDV(MOD-sp4) 168.9 ml EDV(sp4-el) 175.7 ml LVAs ap4 29.1 cm\S\2 LVLs ap4 8.5 cm ESV(MOD-sp4) 82.6 ml ESV(sp4-el) 84.8 ml EF(MOD-sp4) 51.1 % EF(sp4-el) 51.7 % LVAd ap2 39.0 cm\S\2 LVLd ap2 8.7 cm EDV(MOD-sp2) 147.6 ml EDV(sp2-el) 148.0 ml LVAs ap2 26.0 cm\S\2 LVLs ap2 7.8 cm ESV(MOD-sp2) 70.1 ml ESV(sp2-el) 74.2 ml EF(MOD-sp2) 52.5 % EF(sp2-el) 49.9 % LVLd %diff -13.52 % EDV(MOD-bp) 167.7 ml LVLs %diff -9.42 % ESV(MOD-bp) 78.9 ml EF(MOD-bp) 53.0 % SV(MOD-sp4) 86.3 ml SI(MOD-sp4) 43.3 ml/m\S\2 SV(MOD-sp2) 77.5 ml SI(MOD-sp2) 38.9 ml/m\S\2 SV(MOD-bp) 88.8 ml SI(MOD-bp) 44.6 ml/m\S\2 SV(sp4-el) 90.9 ml SI(sp4-el) 45.6 ml/m\S\2 SV(sp2-el) 73.9 ml SI(sp2-el) 37.1 ml/m\S\2 Doppler Measurements and Calculations MV E max femi 67.4 cm/sec MV A max femi 55.0 cm/sec MV E/A 1.2 MV P1/2t max femi 75.1 cm/sec MV P1/2t 68.0 msec MVA(P1/2t) 3.2 cm\S\2 MV dec slope 323.3 cm/sec\S\2 MV dec time 0.21 sec Ao V2 max 175.9 cm/sec Ao max PG 12.4 mmHg Ao max PG (full) 9.1 mmHg ALFREDO(V,A) 2.7 cm\S\2 ALFREDO(V,D) 2.7 cm\S\2 AI max femi 498.7 cm/sec AI max PG 99.5 mmHg AI dec slope 274.8 cm/sec\S\2 AI P1/2t 531.5 msec LV V1 max PG 3.3 mmHg LV V1 max 90.3 cm/sec PA V2 max 80.2 cm/sec PA max PG 2.6 mmHg
--- NOTE | 2017-05-05 16:50 | Progress Note ---
Internal Med Progress Note Date of Service: May 05, 2017. Provider Documentation: SUBJECTIVE: patient examined pre and post stress test. Denies symptoms of chest pain or shortness of breath or lightheadedness while in the hospital OBJECTIVE: General Appearance: WD/WN, no apparent distress Head: normocephalic, atraumatic Eyes: normal inspection, PERRL, EOMI, sclerae normal ENT: normal ENT inspection, hearing grossly normal Neck: supple, no adenopathy, no JVD, trachea midline Respiratory/Chest: lungs clear, normal breath sounds, no respiratory distress, no accessory muscle use Cardiovascular: regular rate, rhythm, no edema, no gallop, no JVD, no murmur, normal peripheral pulses Abdomen/GI: normal bowel sounds, non tender, soft, no organomegaly Back: normal inspection Extremities: normal inspection, no calf tenderness, no pedal edema, normal range of motion Neurologic/Psych: no motor deficits Skin: normal color, warm/dry, no rash ASSESSMENT & PLAN: 56 year old M who was driving when experience chest pain, diaphoresis, vertigo/ lightheaded symptoms. Patient was ruled out for cardiac chest pain with negative troponins and negative stress test. Negative scans of the head for stroke. No focal findings by neurology consultants. Patient has incidental finding of nodular opacities in the right middle and lower lobes and superior segment of the left lower lobe concerning for an infectious etiology as per radiology reading however no clinical or laboratory signs of infection Disposition: Discharge to home with primary care doctor follow up to Dr. Woods. Patient and family aware to make this appointment Negative Head/Brain/Orbit/MRI and MRA, Negative Head CT * STRESS STUDY: * Normal exercise stress echocardiogram. * No echocardiographic or EKG evidence of myocardial ischemia having achieved heart rate adequate for diagnostic purposes. * No symptoms suggeistive of angina were induced having performed an above average exercise level. * The heart rate and blood pressure responses to exercise were normal. * RESTING STUDY: * There is mild concentric left ventricular hypertrophy. * The LV Ejection Fraction = 60-65%. * The aortic valve is bicuspid with fusion of the right and left coronary cusps and mild aortic valve sclerosis. * There is no significant aortic valve stenosis. * Moderate aortic regurgitation is present. * Mild aortic root dilatation is present. Procedure Details * ECHOEX, CPT #[id number] * ECHO COLOR FLOW, CPT #[id number] * ECHO DOPPLER, CPT #[id number] Left Ventricle * The left ventricle is normal in size. * There is mild concentric left ventricular hypertrophy. * Left ventricular systolic function is normal. * Ejection Fraction = 60-65%. * Resting wall motion: Normal. Stress wall motion: Appropriate increase in Left ventricular systolic function and decrease in cavity size. No stress induced segmental wall motion abnormalities. Right Ventricle * The right ventricle is normal in size and function. Atria * The left atrial size is normal. * Right atrial size is normal. * No ASD detected; PFO is not assessed. Mitral Valve * The mitral valve is normal. * There is no mitral valve stenosis. * There is mild mitral regurgitation. Tricuspid Valve * The tricuspid valve is normal. * There is no tricuspid stenosis. * Doppler findings do not suggest pulmonary hypertension. * Significant tricuspid regurgitation is absent. Aortic Valve * The aortic valve is bicuspid. * There is fusion of the right and left coronary cusps. * No hemodynamically significant valvular aortic stenosis. * Moderate aortic regurgitation. Pulmonic Valve * The pulmonic valve is not well visualized. Great Vessels * Mild aortic root dilatation. Pericardium * There is no pericardial effusion. Stress Parameters * The baseline EKG reveals sinus rhythm with normal ST segement. * The EKG response was negative for ischemia. No arrhythmias were observed with exercise. * The stress portion of this study was personally supervised by the undersigned interpreting physician. * Rest heart rate was '70' BPM. * Rest blood pressure was '120/77' * Maximum heart rate achieved was 153 bpm. * Maximum heart rate was 94 % of maximum age-predicted heart rate. * Maximum blood pressure was '186/80' * Total exercise time was '09:01' * Maximum exercise MET level achieved was '10.10' METS * Maximum treadmill speed was '3.40' miles per hour. * Maximum treadmill elevation was '14.00'% grade. Left Ventricular Diastolic Function * Grade I diastolic dysfunction, (abnormal relaxation pattern) CHEST COMBO ANGIO DISSECTION 1. Allowing for nongated technique, no evidence of dissection or acute aortic injury. 2. Nodular opacities in the right middle and lower lobes and superior segment of the left lower lobe concerning for an infectious etiology Vital Signs: Date Time Temp Pulse Resp B/P (MAP) Pulse Ox O2 Delivery O2 Flow Rate FiO2 05/05/17 16:00 Room Air 9/21/17 12:00 Room Air 05/05/17 11:05 36.8 65 18 130/84 (99) 98 05/05/17 08:00 Room Air 05/05/17 07:15 36.9 64 20 126/80 (95) 100 05/05/17 04:00 36.6 67 18 132/78 (96) 95 Room Air 05/05/17 04:00 98 Room Air 05/05/17 00:00 98 Room Air 05/04/17 23:49 36.4 64 18 124/73 (90) 100 Room Air 05/04/17 20:00 Room Air 05/04/17 17:30 65 16 110/71 98 Lab Results: Results Past 24 Hours Test 05/04/17 18:08 05/05/17 00:27 05/05/17 01:51 05/05/17 05:12 Range/Units Estimated Average Glucose 111 mg/dl Hemoglobin A1c 5.5 4.5-5.6 % Total Creatine Kinase 167 132 39-308 U/L Creatine Kinase MB 4.3 3.4 0.5-3.6 ng/ml Creatine Kinase MB Ratio 2.6 2.6 0-3.0 Troponin I < 0.015 < 0.015 0-0.045 ng/ml Hepatitis C Antibody Screen NEG NEG Urine Color YELLOW Urine Appearance CLEAR CLEAR Urine pH 5.5 4.5-7.5 Urine Specific [place] 1.024 1.000-1.030 Urine Protein NEG NEG Urine Glucose (UA) NEG NEG Urine Ketones NEG NEG Urine Occult Blood NEG NEG Urine Nitrite NEG NEG Urine Bilirubin NEG NEG Urine Urobilinogen NEG NEG Urine Leukocyte Esterase NEG NEG Urine WBC (Auto) 1-5 0-5 /hpf Urine RBC (Auto) 0-4 0-4 /hpf Urine Hyaline Casts (Auto) 0 0-5 /lpf Urine Epithelial Cells (Auto) 0-5 0-5 /lpf Urine Bacteria (Auto) NEG NEG Sodium Level 141 136-145 mmol/L Potassium Level 4.2 3.5-5.1 mmol/L Chloride Level 109 98-107 mmol/L Carbon Dioxide Level 25 21-32 mmol/L Anion Gap 7.0 3-11 mmol/L Blood Urea Nitrogen 15 7-18 mg/dl Creatinine 0.92 0.60-1.40 mg/dl Est Creatinine Clear Calc Drug Dose 95.9 ml/min Estimated GFR () 105.9 Estimated GFR (Non- 91.4 BUN/Creatinine Ratio 16.5 10-20 Random Glucose 91 70-99 mg/dl Calcium Level 9.1 8.5-10.1 mg/dl Triglycerides Level 71 0-150 mg/dl Cholesterol Level 160 0-200 mg/dl HDL Cholesterol 61 mg/dl LDL Cholesterol, Calculated 85 mg/dl VLDL Cholesterol, Calculated 14 mg/dl Cholesterol/HDL Ratio 2.6 White Blood Count 6.49 4.8-10.8 K/uL Red Blood Count 4.37 4.7-6.1 M/uL Hemoglobin 13.9 14.0-18.0 g/dL Hematocrit 41.6 42-52 % Mean Corpuscular Volume 95.2 80-100 fL Mean Corpuscular Hemoglobin 31.8 25-34 pg Mean Corpuscular Hemoglobin Concent 33.4 32-36 g/dl Platelet Count 241 130-400 K/uL Mean Platelet Volume 8.6 7.4-10.4 fL Neutrophils (%) (Auto) 59.5 % Lymphocytes (%) (Auto) 27.9 % Monocytes (%) (Auto) 10.8 % Eosinophils (%) (Auto) 1.4 % Basophils (%) (Auto) 0.2 % Neutrophils # (Auto) 3.87 1.4-6.5 K/uL Lymphocytes # (Auto) 1.81 1.2-3.4 K/uL Monocytes # (Auto) 0.70 0.11-0.59 K/uL Eosinophils # (Auto) 0.09 0-0.5 K/uL Basophils # (Auto) 0.01 0-0.2 K/uL RDW Standard Deviation 46.6 36.4-46.3 fL RDW Coefficient of Variation 13.5 11.5-14.5 % Immature Granulocyte % (Auto) 0.2 % Immature Granulocyte # (Auto) 0.01 0.00-0.02 K/uL
--- NOTE | 2017-05-05 17:22 | Discharge Instructions ---
Discharge Instructions Date of Service May 05, 2017. Admission Reason for Admission: Vertigo Discharge Discharge Diagnosis / Problem: atypical non cardiac chest pain, vertigo Discharge Goals Goal(s): Decrease discomfort, Improve function Activity Recommendations Activity Limitations: per Instructions/Follow-up section Lifting Limitations: gradually increase as tolerated Exercise/Sports Limitations: until after follow-up appointment Shower/Bathe: no limitations Driving or Machine Use: resume 3 days after discharge . Instructions / Follow-Up Instructions / Follow-Up f/u appointment made for 05/10/2017 2:00 PM Chino Villela III, MD Family [facility] Diet Patient's current hospital diet: Regular Diet Discharge Diet Recommended Diet: Regular Diet Procedures Procedures Performed: MRI/MRA/CT of head/orbit, stress test Pending Studies Studies pending at discharge: no Laboratory Results Hemoglobin A1c Test 05/04/17 18:08 Range/Units Estimated Average Glucose 111 mg/dl Hemoglobin A1c 5.5 4.5-5.6 % Lipid Panel Test 05/05/17 01:51 Range/Units Triglycerides Level 71 0-150 mg/dl Cholesterol Level 160 0-200 mg/dl HDL Cholesterol 61 mg/dl Cholesterol/HDL Ratio 2.6 LDL Cholesterol, Calculated 85 mg/dl Work Instructions Return To Work: 3 days (can return to work on Tuesday05/09/2017) Medical Emergencies . Who to Call and When: Medical Emergencies: If at any time you feel your situation is an emergency, please call 911 immediately. . Non-Emergent Contact Non-Emergency issues call your: Primary Care Provider Call Non-Emergent contact if: your pain is not controlled . . "Provider Documentation" section prepared by Dejuan Almodovar. . VTE Core Measure Inpt VTE Proph given/why not?: Enoxaparin (Lovenox)SQ
--- NOTE | 2017-05-05 17:25 | Discharge Summary ---
Discharge Summary Date of Service May 05, 2017. 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 He states that he got acute chest pain acroos his chest that was a 1/10 while driving and felt like a pulled muscle. He denied radiation of pain. This was swiftly followed by drenching sweats, shortness of breath, nausea, vertigo and blurred vision. A stranger called an ambulance and EMS gave him Zofran, ASA and Nitro with resolution of chest pain and improvement in his symptoms on arrival to the ER. Initial VS in the ER were normal, he was not hypoxic and was afebrile. He then became more dizzy to the point where he couldn't move his head or body much at all for fear of severe nausea and extreme dizziness. He has a h/o bicuspid aortic valve and had a CT scan of his chest revealing no evidence of dissection. At this time, his chest pain and shortness of breath have resolved. He admits to a headache from the mobile. About three weeks ago he and his travelled to [place] and went hiking on trails with a tour group in [facility]. He denies any bugbites, working with hides or hunting activities or anything remote. He does admit to having a URI, however, for which he took Nyquil and Dayquil for about 2 weeks. He continues to take cough drops this morning. The cold symptoms have mostly resolved per his report. He denies any sore throat, cough, fevers, chills, diarrhea, blood per rectum, rashes, joint or muscle aches out of the ordinary. 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 He also reports that he frequently cleans out his own ears with cerumenolytics at home, and uses a suction bulb to squirt warm water in his ear to rinse out the wax debris. He last did this two nights ago. Regarding chest pains in the past, he has felt twinges of pain in response to stressful situations which would be sharp, substernal and last no more than a minute on a weekly basis. He learned some coping mechanisms and breathing techniques, however, and since then these have resolved. He is a very healthy , active nonsmoker. His parents both from heart disease in their early 60s. Physical Exam (per Admitting): General Appearance: WD/WN, no apparent distress, + pertinent finding ( sitting guarded about turning head for fear of being dizzy) Head: normocephalic, atraumatic Eyes: normal inspection, PERRL, EOMI, sclerae normal ENT: normal ENT inspection, hearing grossly normal, TMs normal, pharynx normal (limited view with Mallumpati III and extreme gag reflex), + pertinent finding (TM could not be visualized on R ear because of cerumen blockage, normal on L) Neck: supple, no adenopathy, no JVD, trachea midline Respiratory/Chest: lungs clear, normal breath sounds, no respiratory distress, no accessory muscle use Cardiovascular: regular rate, rhythm, no edema, no gallop, no JVD, no murmur , normal peripheral pulses Abdomen/GI: normal bowel sounds, non tender, soft, no organomegaly Back: normal inspection Extremities/Musculoskelatal: normal inspection, no calf tenderness, no pedal edema, normal range of motion Neurologic/Psych: newspaper or periodical editor II-XII nml as tested, no motor/sensory deficits, alert , normal mood/affect, normal reflexes, oriented x 3, + pertinent finding (left- beating horizontal nystagmus) Skin: normal color, warm/dry, no rash Hospital Course 56 year old M who was driving when experience chest pain, diaphoresis, vertigo/ lightheaded symptoms. Patient was ruled out for cardiac chest pain with negative troponins and negative stress test. Negative scans of the head for stroke. No focal findings by neurology consultants. Patient has incidental finding of nodular opacities in the right middle and lower lobes and superior segment of the left lower lobe concerning for an infectious etiology as per radiology reading however no clinical or laboratory signs of infection Disposition: Discharge to home with primary care doctor follow up to Dr. Woods. Patient and family aware to make this appointment Negative Head/Brain/Orbit/MRI and MRA, Negative Head CT * STRESS STUDY: * Normal exercise stress echocardiogram. * No echocardiographic or EKG evidence of myocardial ischemia having achieved heart rate adequate for diagnostic purposes. * No symptoms suggeistive of angina were induced having performed an above average exercise level. * The heart rate and blood pressure responses to exercise were normal. * RESTING STUDY: * There is mild concentric left ventricular hypertrophy. * The LV Ejection Fraction = 60-65%. * The aortic valve is bicuspid with fusion of the right and left coronary cusps and mild aortic valve sclerosis. * There is no significant aortic valve stenosis. * Moderate aortic regurgitation is present. * Mild aortic root dilatation is present. Procedure Details * ECHOEX, CPT #[id number] * ECHO COLOR FLOW, CPT #[id number] * ECHO DOPPLER, CPT #[id number] Left Ventricle * The left ventricle is normal in size. * There is mild concentric left ventricular hypertrophy. * Left ventricular systolic function is normal. * Ejection Fraction = 60-65%. * Resting wall motion: Normal. Stress wall motion: Appropriate increase in Left ventricular systolic function and decrease in cavity size. No stress induced segmental wall motion abnormalities. Right Ventricle * The right ventricle is normal in size and function. Atria * The left atrial size is normal. * Right atrial size is normal. * No ASD detected; PFO is not assessed. Mitral Valve * The mitral valve is normal. * There is no mitral valve stenosis. * There is mild mitral regurgitation. Tricuspid Valve * The tricuspid valve is normal. * There is no tricuspid stenosis. * Doppler findings do not suggest pulmonary hypertension. * Significant tricuspid regurgitation is absent. Aortic Valve * The aortic valve is bicuspid. * There is fusion of the right and left coronary cusps. * No hemodynamically significant valvular aortic stenosis. * Moderate aortic regurgitation. Pulmonic Valve * The pulmonic valve is not well visualized. Great Vessels * Mild aortic root dilatation. Pericardium * There is no pericardial effusion. Stress Parameters * The baseline EKG reveals sinus rhythm with normal ST segement. * The EKG response was negative for ischemia. No arrhythmias were observed with exercise. * The stress portion of this study was personally supervised by the undersigned interpreting physician. * Rest heart rate was '70' BPM. * Rest blood pressure was '120/77' * Maximum heart rate achieved was 153 bpm. * Maximum heart rate was 94 % of maximum age-predicted heart rate. * Maximum blood pressure was '186/80' * Total exercise time was '09:01' * Maximum exercise MET level achieved was '10.10' METS * Maximum treadmill speed was '3.40' miles per hour. * Maximum treadmill elevation was '14.00'% grade. Left Ventricular Diastolic Function * Grade I diastolic dysfunction, (abnormal relaxation pattern) CHEST COMBO ANGIO DISSECTION 1. Allowing for nongated technique, no evidence of dissection or acute aortic injury. 2. Nodular opacities in the right middle and lower lobes and superior segment of the left lower lobe concerning for an infectious etiology Total time spent on discharge = This includes examination of the patient, discharge planning, medication reconciliation, and communication with other providers. Discharge Instructions f/u appointment made for 05/10/2017 2:00 PM Chino Villela III, MD [facility] If symptoms of chest pain or lightheadedness worsen seek immediate medical attention
[2017-05-05 17:37] VITALS: BP 130/84; PULSE 65; TEMP 36.8; O2SAT 98
--- NOTE | 2017-05-05 18:54 | PROGRESS NOTE ---
DATE: 05/05/2017 NOTE: Rainer is a 56-year-old patient of Dr. Stanislaw Soria and was admitted yesterday for an event characterized by a sudden sensation of disequilibrium followed by some low-grade chest pain, then what sounds like ocular oscillations, vertiginous sensations and then was associated with extreme diaphoresis, nausea, etc. He was brought to the Emergency Room, because of chest pain he was given nitroglycerin in the field and when he arrived here he had a throbbing headache, was seeing some "floaters" which he has seen before in the remote past when he was afflicted by migraines and then had more of a clear cut vertigo sensation which resolved and has not recurred. He had an extensive workup looking for an aortic dissection because of the chest pain. 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 He does have a remote history of benign paroxysmal vertigo which has resolved and he states his current symptoms were not like those which were of brief duration and clearly related to head movements He also has a bicuspid aortic valve and a history of prostate cancer. He does have a history of migraines, but has not had any since his late adolescence and these were characterized by visual auras, disequilibrium, pounding and throbbing sensations. He does admit, however, that when he is stressed he will have what sounds like ocular migrainous activity, but has never had any vertigo or headaches with it. Currently, his exam is absolutely normal. He is awake, alert, oriented in 3 spheres, has no nystagmus, although he feels a little off balance when he walks; it is nonspecific and there is no ataxia, spasticity, drift, pronation sign, tremor, tics or choreiform activity. Cranial nerves are normal. Speech is clear. Reflexes are 1+. Toes are downgoing. No Martha's signs are seen. Strength and sensation are normal. It is hard to know what is going on here. The event could have been a migrainous one with vertiginous aura followed by ocular manifestations, visual field deficits and now clearing completely. Unfortunately, when nitrates were administered patients can easily have a migraine-like pattern, but in this man with a predisposition to having this I suspect and wonder if the whole issue was not a migraine. Whatever the case, there is no fixed deficits now. The MRI shows at most of an old high T2 intensity signal of brodie, it could be a residual prior migraine activity. I really would not treat him with anything at this point. He has been cleared by cardiology apparently for any coronary disease with a stress echo and if indeed this is the case, I suspect he could be discharged and followed up with his primary care physician. If he continues to have these events or if the migrainous visual disturbances become more frequent, then neurology can take a look at him and consider some preventative medications, etc. For now, however, I see no harm in treating him with a single baby aspirin a day which would be a reasonable advice for a man of his age. AREN
== END 2017-05-05 18:03 | disposition home or self-care (01) ==
LOC: EDBD 11:42 → C.EDC 11:44 → C.MED 16:23 → ENRESERV 17:21
PROVIDERS: ADMIT Hospitalist; ATTEND Hospitalist
DX: R07.89 Other chest pain (principal); Q23.1 Congenital insufficiency of aortic valve; H81.13 Benign paroxysmal vertigo, bilateral; E87.6 Hypokalemia; Z85.46 Personal history of malignant neoplasm of prostate